=== PATIENT | male | born 1990 | race Two or more races ===

== ENCOUNTER 2021-11-18 00:25 | Emergency (ER) | payer OTHER ==
[~2021-11-18] VITALS: Ht 188 cm; Wt 98.0 kg
[2021-11-18 00:26] VITALS: BP 145/74
[2021-11-18] MEDS ORDERED: CEPH-322 PO (02:13)
[2021-11-18] MEDS ORDERED: IBUP800T27 PO (02:13)
[2021-11-18] MEDS ORDERED: ACETAMINOPHEN 500 MG TAB PO ONE (02:45)
== END 2021-11-18 06:50 | disposition home or self-care (01) ==
LOC: ER 00:25
DX: S01.81XA Laceration without foreign body of other part of head, initial encounter (principal); W01.0XXA Fall on same level from slipping, tripping and stumbling without subsequent striking against object, initial encounter; Y93.89 Activity, other specified; Y92.89 Other specified places as the place of occurrence of the external cause; Y99.8 Other external cause status
CPT/HCPCS: 70450